=== PATIENT | male | born 1965 ===

== ENCOUNTER 2018-08-18 19:17 | Emergency (ER) | payer OTHER ==
[~2018-08-18] VITALS: Ht 175.3 cm; Wt 79.4 kg
[~2018-08-18 19:17] MED LIST: NEURONTIN300 MG PO; PERCOCET 5-3251 EACH PO; POLY119PG PO; ZOFRAN ODT4 MG PO
== END 2018-08-18 22:03 | disposition home or self-care (01) ==
LOC: ER 19:17
DX: L03.113 Cellulitis of right upper limb (principal)